=== PATIENT | male | born 1990 ===

== ENCOUNTER 2020-01-27 17:42 | Emergency (ER) | payer OTHER, SELFPAY ==
[2020-01-28 14:49] LABS: SARS-CoV-2 MS2 Positive; SARS-CoV-2 N Gene Negative; SARS-CoV-2 S Gene Negative; SARS-CoV-2 orf1ab Negative
== END 2020-01-27 18:09 | disposition home or self-care (01) ==
LOC: ERS 17:42
DX: Z20.828 Contact with and (suspected) exposure to other viral communicable diseases (principal); F84.0 Autistic disorder
CPT/HCPCS: 87635; 99283; U0003

== ENCOUNTER 2020-11-22 13:35 | Outpatient (CLI) | payer OTHER | END 2020-11-22 13:36 | disposition home or self-care (01) | LOC: DTY/OP 13:35 | PROVIDERS: ATTEND Hospitalist | DX: E66.01 Morbid (severe) obesity due to excess calories (principal) | CPT/HCPCS: 97802 ==